=== PATIENT | male | born 1960 | race African-American/Black ===

== ENCOUNTER 2020-03-20 08:56 | Emergency (ER) | payer OTHER ==
[~2020-03-20] VITALS: Ht 180.3 cm; Wt 110.0 kg
[2020-03-20] MEDS ORDERED: IBUPROFEN 600MG TABLET PO ONE (09:30)
[2020-03-20 09:32] VITALS: BP 164/84
== END 2020-03-20 09:38 | disposition home or self-care (01) ==
LOC: ER 09:14
DX: M54.5 Low back pain (principal); H40.9 Unspecified glaucoma; V43.52XA Car driver injured in collision with other type car in traffic accident, initial encounter; Y93.89 Activity, other specified; Y92.488 Other paved roadways as the place of occurrence of the external cause
CPT/HCPCS: 99283